=== PATIENT | male | born 1980 | race Caucasian/White ===

== ENCOUNTER 2022-08-19 23:49 | Emergency (ER) | payer BC ==
[~2022-08-19] VITALS: Ht 177.8 cm; Wt 71.7 kg
[2022-08-20 03:41] VITALS: BP 140/68
== END 2022-08-20 03:43 | disposition home or self-care (01) ==
LOC: ED 23:49
DX: S02.2XXA Fracture of nasal bones, initial encounter for closed fracture (principal); Y04.0XXA Assault by unarmed brawl or fight, initial encounter; Z88.1 Allergy status to other antibiotic agents; Z23 Encounter for immunization
CPT/HCPCS: 70486; 90715; A9270